=== PATIENT | male | born 1990 | race Two or more races ===

== ENCOUNTER 2019-04-01 17:26 | Emergency (ER) | payer MEDICAID, OTHER ==
[~2019-04-01] VITALS: Ht 165.1 cm; Wt 54.0 kg
[2019-04-01 19:48] VITALS: BP 141/70
== END 2019-04-01 20:17 | disposition home or self-care (01) ==
LOC: ED 18:47
DX: A08.39 Other viral enteritis (principal); E11.65 Type 2 diabetes mellitus with hyperglycemia; I10 Essential (primary) hypertension; R19.7 Diarrhea, unspecified
CPT/HCPCS: 74021; 74177; 80053; 81001; 82962; 83605; 85025; 96360; 96361; 99284; J7030; Q9967

== ENCOUNTER 2020-04-23 05:37 | Inpatient (IN) | payer MEDICAID ==
[~2020-04-23] VITALS: Ht 165.1 cm; Wt 55.3 kg
[~2020-04-23 05:37] MED LIST: ESCI10TA PO; EYE DROPS; GABA-826 PO; INSULIN PUMP; LISI-170 PO
[2020-04-23] MEDS ORDERED: ONDANSETRON 2MG/ML, 2ML ONE (05:54)
[2020-04-23] MEDS ORDERED: SODIUM CHLORIDE 0.9% 1,000ML IVBOLUS ONE ×2 (06:00→09:30)
--- NOTE | 2020-04-23 06:06 | NUR ---
PT TO ED WITH N/V X2 DAYS, REPORTS CURRENT HYPERGLYCEMIA AT HOME BETWEEN 200-500 FOR BLOOD GLUCOSE. PT ALSO REPORTS DM1 WITH HC OF DKA, RTEPORTS SIMILAR SYMPTOMS. PT PLACED ON ALL MONITORING, IV PLACED, LABS DRAWN, MEDICATED PER MAR, CALL LIGHT WITHIN REACH, ALL SAFETY MEASURES IN PLACE.
[2020-04-23] MEDS ORDERED: METOCLOPRAMIDE 5 MG/ML, 2ML ONE (06:29)
[2020-04-23] MEDS ORDERED: METOCLOPRAMIDE 5 MG/ML, 2ML IVPush ONE (06:30)
[2020-04-23] MEDS ORDERED: ONDANSETRON 2MG/ML, 2ML IVPush ONE (06:30)
[2020-04-23 06:32] LABS: BASOPHILS # (AUTO) 0.03 x10^3/uL (0-0.1); BASOPHILS % (AUTO) 0 % (0-1); EOSINOPHILS # (AUTO) 0.03 x10^3/uL (0-0.4); EOSINOPHILS % (AUTO) 0 % (1-7); LYMPHOCYTES # (AUTO) 2.07 x10^3/uL (1-3.4); LYMPHOCYTES % (AUTO) 15 % (22-44); MD NO; MEAN CORPUSCULAR HGB CONC 33.3 g/dL (33.2-36.2); MEAN CORPUSCULAR VOLUME 95.9 fL (81-97); MEAN PLATELET VOLUME 8.5 fL (7.4-10.4); MONOCYTES # (AUTO) 0.89 x10^3/uL (0.2-0.8); MONOCYTES % (AUTO) 6 % (2-9); NEUTROPHILS # (AUTO) 11.27 x10^3/uL (1.8-6.8); NEUTROPHILS % (AUTO) 79 % (42-75); PLATELET COUNT 322 x10^3/uL (130-400); RED BLOOD COUNT 4.48 x10^6/uL (4.38-5.82); RED CELL DISTRIBUTION WIDTH 11.9 % (9.4-14.8)
--- NOTE | 2020-04-23 06:35 | NUR ---
PT MEDICATED PER MAR REPORTS CONTINUED NAUSEA WITH DRY HEAVING. IMAGING COMPLETED.
[2020-04-23 06:37] LABS: ALBUMIN 4.7 g/dL (3.4-5.0); ANION GAP 16 mmol/L (5-15); CALCIUM 9.8 mg/dL (8.5-10.1); CHLORIDE 100 mmol/L (98-107)
[2020-04-23] MEDS ORDERED: MAALOX/HYOSCYAMINE/LIDOCAINE 45 ML BTL ONE (06:37)
[2020-04-23 06:41] LABS: ALANINE AMINOTRANSFERASE 41 U/L (12-78); ALKALINE PHOSPHATASE 134 U/L (45-117); BILIRUBIN,TOTAL 1.1 mg/dL (0.2-1.0); CREATININE 2.62 mg/dL (0.7-1.3); TOTAL PROTEIN 8.5 g/dL (6.4-8.2)
--- NOTE | 2020-04-23 06:46 | NUR ---
REPORT TO ARMANDO KEVIN.
[2020-04-23] MEDS ORDERED: MAALOX/HYOSCYAMINE/LIDOCAINE 45 ML BTL PO ONE (07:00)
[2020-04-23 07:20] LABS: ACETONE, SERUM Large (80mg/dL) (Negative)
[2020-04-23] MEDS ORDERED: PROMETHAZINE 25 MG/ML, 1ML ONE (07:30)
[2020-04-23] MEDS ORDERED: MORPHINE SULFATE 4 MG/ML, 1ML ONE ×2 (07:30→10:23)
--- NOTE | 2020-04-23 07:36 | NUR ---
VOMITING REFRACTORY TO PRIOR MEDICATIONS, ALSO WITH UPPER BACK (LAT) PAIN AT 10/10. 1ST LITER OF NS COMPLETE PROVIDER MADE AWARE PLAN TO ADMIN MORPHINE/PHERNERGAN, 2ND LITER OF FLUID MEDICATED WITH ABOVE PER EMAR
--- NOTE | 2020-04-23 08:36 | NUR ---
WITH REASSESSMENT PAIN IMPROVED TO 2/10, NAUSEA TO 0/10 2ND LITER OF NS COMPLETE FSBS 374 PROVIDER MADE AWARE
[2020-04-23] MEDS ORDERED: MORPHINE SULFATE 4 MG/ML, 1ML IVPush ONE (09:00)
[2020-04-23] MEDS ORDERED: PROMETHAZINE 25 MG/ML, 1ML IM ONE (09:00)
[2020-04-23] MEDS: SODIUM CHLORIDE 0.9% 1,000 ML IV SCH ×5 (09:01→23:00)
[2020-04-23] MEDS ORDERED: SODIUM CHLORIDE 0.9% 1,000 ML IV SCH (09:09)
--- NOTE | 2020-04-23 09:22 | NUR ---
Dr. alexander (hospitalist called to clarify poc) He is about to examine patient
[2020-04-23] MEDS ORDERED: ONDANSETRON 2MG/ML, 2ML IVPush PRN (10:00)
[2020-04-23] MEDS ORDERED: ACETAMINOPHEN 325 MG TABLET PO PRN (10:00)
[2020-04-23] MEDS ORDERED: DOCUSATE 100 MG CAPSULE PO PRN (10:00)
[2020-04-23] MEDS ORDERED: HYDROcodone/APAP 5/325 TABLET PO PRN (10:00)
[2020-04-23] MEDS ORDERED: morphine SULFATE 10 MG/ML, 1ML IVPush PRN (10:00)
[2020-04-23] MEDS ORDERED: ZOLPIDEM 5MG TABLET PO PRN (10:00)
[2020-04-23] MEDS: INSULIN GLARGINE 100 UNITS/ML, PEN SQ-INSULIN SCH (10:35)
--- NOTE | 2020-04-23 10:39 | NUR ---
MEDICATED PER EMAR WITH 10 UNITS OF LANTUS, 4MG OF MORPHINE FOR REFRACTORY PAIN B/P MUCH IMPROVED (SBP 125)
--- NOTE | 2020-04-23 10:41 | NUR ---
SPOKE TO DR. 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 pLAN TO ADMIN LANTUS, WAIT 45 MIN THEN RECHECK FSBS THEN ADMIN SLIDING SCALE REPORT CALLED TO LUIS ALFREDO ROBERTS-CLARIFIED RECENT CHANGES
[2020-04-23 11:02] VITALS: BP 120/70
[2020-04-23] MEDS: INSULIN REGULAR 100 UNITS/ML, 3ML VIAL SQ-INSULIN SCH ×3 (11:38→20:43)
[2020-04-23] MEDS: METOCLOPRAMIDE 5 MG/ML, 2ML IVPush SCH ×3 (12:00→23:08)
[2020-04-23 12:07] VITALS: BP 123/71
[2020-04-23 18:14] VITALS: BP 118/68
[2020-04-23] MEDS ORDERED: DEXL60CA2 PO (18:47)
[2020-04-23 20:35] VITALS: BP 159/84
[2020-04-24 02:30] VITALS: BP 127/73
[2020-04-24] MEDS: METOCLOPRAMIDE 5 MG/ML, 2ML IVPush SCH ×3 (05:14→17:28)
[2020-04-24] MEDS: SODIUM CHLORIDE 0.9% 1,000 ML IV SCH ×3 (05:14→17:54)
[2020-04-24 06:05] LABS: BASOPHILS # (AUTO) 0.02 x10^3/uL (0-0.1); BASOPHILS % (AUTO) 0 % (0-1); EOSINOPHILS # (AUTO) 0.11 x10^3/uL (0-0.4); EOSINOPHILS % (AUTO) 1 % (1-7); LYMPHOCYTES # (AUTO) 2.41 x10^3/uL (1-3.4); LYMPHOCYTES % (AUTO) 22 % (22-44); MD NO; MEAN CORPUSCULAR HEMOGLOBIN 32.2 pg (27.5-34.5); MEAN CORPUSCULAR VOLUME 94.9 fL (81-97); MEAN PLATELET VOLUME 8.3 fL (7.4-10.4); MONOCYTES # (AUTO) 0.75 x10^3/uL (0.2-0.8); MONOCYTES % (AUTO) 7 % (2-9); NEUTROPHILS % (AUTO) 70 % (42-75); PLATELET COUNT 233 x10^3/uL (130-400); RED BLOOD COUNT 3.47 x10^6/uL (4.38-5.82); RED CELL DISTRIBUTION WIDTH 12.4 % (9.4-14.8)
[2020-04-24 06:08] LABS: ANION GAP 8 mmol/L (5-15); CALCIUM 7.8 mg/dL (8.5-10.1); CHLORIDE 113 mmol/L (98-107); CREATININE 1.86 mg/dL (0.7-1.3)
[2020-04-24] MEDS: INSULIN REGULAR 100 UNITS/ML, 3ML VIAL SQ-INSULIN SCH ×4 (07:00→20:10)
[2020-04-24 08:20] VITALS: BP 151/83
[2020-04-24] MEDS: INSULIN GLARGINE 100 UNITS/ML, PEN SQ-INSULIN SCH (09:32)
[2020-04-24 13:09] VITALS: BP 149/83
[2020-04-24 19:32] VITALS: BP 169/98
[2020-04-25] MEDS: SODIUM CHLORIDE 0.9% 1,000 ML IV SCH ×2 (00:07→07:16)
[2020-04-25 00:13] VITALS: BP 144/79
[2020-04-25] MEDS ORDERED: DEXTROSE 50%, 50ML SYRINGE IVPush PRN (01:00)
[2020-04-25] MEDS ORDERED: GLUCAGON 1 MG IM PRN (01:00)
[2020-04-25] MEDS ORDERED: DEXTROSE 4 GM TAB.CHEW PO PRN (01:00)
[2020-04-25] MEDS: METOCLOPRAMIDE 5 MG/ML, 2ML IVPush SCH ×3 (04:50→11:33)
[2020-04-25 05:30] LABS: BASOPHILS # (AUTO) 0.03 x10^3/uL (0-0.1); BASOPHILS % (AUTO) 0 % (0-1); EOSINOPHILS # (AUTO) 0.09 x10^3/uL (0-0.4); EOSINOPHILS % (AUTO) 1 % (1-7); LYMPHOCYTES # (AUTO) 1.71 x10^3/uL (1-3.4); LYMPHOCYTES % (AUTO) 23 % (22-44); MD NO; MEAN CORPUSCULAR HEMOGLOBIN 32.1 pg (27.5-34.5); MEAN CORPUSCULAR HGB CONC 33.5 g/dL (33.2-36.2); MEAN CORPUSCULAR VOLUME 95.6 fL (81-97); MEAN PLATELET VOLUME 8.6 fL (7.4-10.4); MONOCYTES # (AUTO) 0.57 x10^3/uL (0.2-0.8); MONOCYTES % (AUTO) 8 % (2-9); NEUTROPHILS # (AUTO) 5.17 x10^3/uL (1.8-6.8); NEUTROPHILS % (AUTO) 68 % (42-75); PLATELET COUNT 255 x10^3/uL (130-400); RED BLOOD COUNT 3.85 x10^6/uL (4.38-5.82); RED CELL DISTRIBUTION WIDTH 12.1 % (9.4-14.8)
[2020-04-25 05:39] LABS: CHLORIDE 108 mmol/L (98-107)
[2020-04-25 05:51] LABS: ANION GAP 8 mmol/L (5-15); CALCIUM 8.4 mg/dL (8.5-10.1); CREATININE 1.35 mg/dL (0.7-1.3)
[2020-04-25] MEDS: INSULIN REGULAR 100 UNITS/ML, 3ML VIAL SQ-INSULIN SCH ×2 (08:16→11:32)
[2020-04-25] MEDS ORDERED: INSU100I13 SQ-INSULIN (08:39)
[2020-04-25] MEDS ORDERED: INSU100V5 SQ-INSULIN (08:39)
[2020-04-25 08:48] VITALS: BP 167/93
[2020-04-25] MEDS ORDERED: INSULIN GLARGINE 100 UNITS/ML, PEN SQ-INSULIN SCH (09:00)
[2020-04-25] MEDS ORDERED: SODIUM CHLORIDE FLUSH 10ML SYR IVF SCH (09:00)
[2020-05-15] MEDS ORDERED: SODIUM CHLORIDE 0.9% 1,000 ML IV SCH (08:00)
== END 2020-04-25 13:38 | disposition home or self-care (01) | DRG 638 ==
LOC: ED 06:49 → EDIP 07:49 → 3N 10:57
PROVIDERS: ADMIT Hospitalist; ATTEND Internal Medicine
DX: E10.10 Type 1 diabetes mellitus with ketoacidosis without coma (principal); N17.9 Acute kidney failure, unspecified; E87.1 Hypo-osmolality and hyponatremia; E10.22 Type 1 diabetes mellitus with diabetic chronic kidney disease; D72.829 Elevated white blood cell count, unspecified; E10.319 Type 1 diabetes mellitus with unspecified diabetic retinopathy without macular edema; E86.0 Dehydration; N18.3 Chronic kidney disease, stage 3 (moderate); F12.90 Cannabis use, unspecified, uncomplicated; Z96.41 Presence of insulin pump (external) (internal); Z88.5 Allergy status to narcotic agent
CPT/HCPCS: 36415; 71045; 80048; 80053; 82010; 82800; 82947; 82962; 83690; 85025; 87086; 96361; 96372; 96374; 99291; G0378; J1815; J2405; J2550; J2270; J2765; J7030